=== PATIENT | male | born 1940 | race Caucasian/White ===

== ENCOUNTER 2017-03-16 09:30 | Emergency (ER) | payer OTHER, MEDICARE ==
[2017-03-16 09:44] VITALS: RESP 16; O2SAT 97
[2017-03-16 10:16] LABS: % IMMATURE GRANULYOCYTES 0.7 % (0.0-1.1); ABSOLUTE IMMATURE GRANULOCYTES 0.07 10^3/uL (0.00-0.10); ADD DIFF? NO; ADD MORPH? NO; ADD SCAN? NO; ATYPICAL LYMPHOCYTE FLAG 0 (0-99); FRAGMENT RBC FLAG 0 (0-99); HEMATOCRIT 44.9 % (40.0-51.0); HEMOGLOBIN 15.1 g/dL (13.7-17.5); LEFT SHIFT FLG 0 (0-99); LIPEMIA HEMOLYSIS FLAG 80 (0-99); MEAN CELL HEMOGLOBIN 30.6 pg (27.9-34.1); MEAN CELL HEMOGLOBIN CONCENTR. 33.6 g/dL (32.4-36.7); MEAN CELL VOLUME 90.9 fL (81.5-99.8); PLATELET CLUMPS FLAG 10 (0-99); PLATELET COUNT 280 10^3/uL (150-400); RED BLOOD CELL COUNT 4.94 10^6/uL (4.40-6.38); RED CELL DISTRIBUTION WIDTH 12.5 % (11.5-15.2)
[2017-03-16 10:27] LABS: ANION GAP 15 mEq/L (8-16); CALCIUM 9.9 mg/dL (8.5-10.4); CARBON DIOXIDE 22 mEq/l (22-31); CHLORIDE 102 mEq/L (97-110); CREATININE 0.9 mg/dL (0.7-1.3); GLOMERULAR FILTRATION RATE > 60; GLUCOSE 220 mg/dL (70-100); POTASSIUM 4.5 mEq/L (3.5-5.2); SODIUM 139 mEq/L (134-144)
--- NOTE | 2017-03-16 10:33 | EDPHY ---
H & P Time Seen by Provider: 03/16/17 09:46 HPI/ROS: CHIEF COMPLAINT: 2 falls in the last 2 days HISTORY OF PRESENT ILLNESS: 76-year-old man is visiting from [place]. He had his 1st fall about a month ago when he was wearing a leaf blower on his back at home in [place] and fell on the slope outside of his house injuring his left elbow. He tells me that he fell Friday 2 days ago when he stepped on the edge of a planter and today he fell trying to get up of a rocking chair and ended up on the bed. His 2 daughters also feel like maybe he was a little "spacier "than normal when he arrived here on the but after encouraging him to drink a lot of water for 2 days it has been really mentally at his baseline since at least the day before . Currently the patient denies double vision or headache, denies neck or back pain , denies dizziness syncope or vertigo. REVIEW OF SYSTEMS: Eye: no change in vision ENT: no sore throat, chronically wears hearing aids Cardiac: no chest pain or syncope Pulmonary: no cough or SOB Abdomen: no vomiting, diarrhea, abdominal pain Musculoskeletal: no back pain Skin: no rash Neuro: no headache Constitutional: no fever : Some chronic urinary hesitancy which is unchanged A comprehensive 10 point review of systems is otherwise negative aside from elements mentioned in the history of present illness. PAST MEDICAL HISTORY: Includes diabetes and hypertension, reflux. Open-heart surgery in 1949, patient states he does not know the details and never really wanted to know them. Social history: Here with his daughters, visiting from [place] General Appearance: Alert and conversant, cooperative. Eyes: No scleral icterus. Pupils equal round reactive extraocular motion intact. ENT, Mouth: Normal mucous membranes. Respiratory: Normal respiratory effort, breath sounds equal, lungs are clear to auscultation. Cardiovascular: Regular rate and rhythm. 1/6 systolic murmur. Gastrointestinal: Abdomen is soft and non tender. Neurological: Alert and oriented x3. Normally conversant. Face symmetric, normal movement and sensation in all extremities. Ambulatory, not ataxic, normal [id number] bilaterally, negative for pronator drift, negative Romberg. Skin: 5 mm abrasion over the right eyelid and bruising around the right eye. Musculoskeletal: No peripheral edema and no joint swelling. No cervical thoracic or lumbar spinal tenderness. Psychiatric: Not agitated. Emergency Department course/MDM: Plan urinalysis, noncontrast head CT, labs to check glucose. Most likely would be mechanical falls. Considered including but not limited to dysrhythmia, syncope, seizure, intracranial bleed, metabolic abnormality 1045: CT head negative for acute injury per Tammy. Cervical spine cleared clinically by myself. 1122: Results discussed with family, discharge after urinalysis with primary care follow-up in [place]. They are all in agreement. Negative for UTI. Clinical picture not suggestive of syncope. Smoking Status: Never smoked Constitutional: Initial Vital Signs Temperature (C) 37.0 C 03/16/17 09:37 Heart Rate 78 03/16/17 09:37 Respiratory Rate 16 03/16/17 09:37 Blood Pressure 186/94 H 03/16/17 09:37 O2 Sat (%) 97 03/16/17 09:37 O2 Delivery Mode Room Air Allergies/Adverse Reactions: povidone-iodine [From Betadine] Allergy (Verified 03/16/17 09:36) soap [From Betadine] Allergy (Verified 03/16/17 09:36) Home Medications: Medication Instructions Recorded Janumet 50-1,000 mg Tablet 03/16/17 LORAZEPAM 03/16/17 Metoprolol ER-Hctz 100-12.5 mg 03/16/17 Pravastatin Sodium 03/16/17 Sertraline HCl 03/16/17 Tamsulosin HCl 03/16/17 Medical Decision Making - Diagnostics EKG Interpretation: 12-lead EKG interpreted by me; official reading is in trace master. My interpretation is sinus rhythm with first-degree AV block and LVH. Imaging Results: Imaging Impressions Head CT 03/16/17 10:04 Impression: 1. No acute intracranial findings. 2. Diffuse cerebral atrophy with periventricular and subcortical low attenuation consistent with chronic microvascular ischemic gliosis. Findings discussed with Teodoro Obrien MD on March 16, 2017 at 1040 hours. Differential Diagnosis: Differential diagnosis considered for head injury including but not limited to concussion, skull fracture, intraparenchymal contusion, subarachnoid, subdural and epidural hematoma. - Data Points Laboratory Results: Laboratory Results 03/16/17 10:10 03/16/17 10:10 03/16/17 03/16/17 03/16/17 11:35 10:10 10:10 WBC 9.77 10^3/uL H 10^3/uL (3.80-9.50) RBC 4.94 10^6/uL 10^6/uL (4.40-6.38) Hgb 15.1 g/dL g/dL (13.7-17.5) Hct 44.9 % % (40.0-51.0) MCV 90.9 fL fL (81.5-99.8) MCH 30.6 pg pg (27.9-34.1) MCHC 33.6 g/dL g/dL (32.4-36.7) RDW 12.5 % % (11.5-15.2) Plt Count 280 10^3/uL 10^3/uL (150-400) MPV 11.0 fL fL (8.7-11.7) Neut % (Auto) 79.8 % H % (39.3-74.2) Lymph % (Auto) 9.3 % L % (15.0-45.0) [place] % (Auto) 7.3 % % (4.5-13.0) Eos % (Auto) 2.5 % % (0.6-7.6) Baso % (Auto) 0.4 % % (0.3-1.7) Nucleat RBC Rel Count 0.0 % % (0.0-0.2) Absolute Neuts (auto) 7.80 10^3/uL H 10^3/uL (1.70-6.50) Absolute Lymphs (auto) 0.91 10^3/uL L 10^3/uL (1.00-3.00) Absolute Monos (auto) 0.71 10^3/uL 10^3/uL (0.30-0.80) Absolute Eos (auto) 0.24 10^3/uL 10^3/uL (0.03-0.40) Absolute Basos (auto) 0.04 10^3/uL 10^3/uL (0.02-0.10) Absolute Nucleated RBC 0.00 10^3/uL 10^3/uL (0-0.01) Immature Gran % 0.7 % % (0.0-1.1) Immature Gran # 0.07 10^3/uL 10^3/uL (0.00-0.10) Sodium 139 mEq/L mEq/L (134-144) Potassium 4.5 mEq/L mEq/L (3.5-5.2) Chloride 102 mEq/L mEq/L (97-110) Carbon Dioxide 22 mEq/l mEq/l (22-31) Anion Gap 15 mEq/L mEq/L (8-16) BUN 22 mg/dL mg/dL (7-23) Creatinine 0.9 mg/dL mg/dL (0.7-1.3) Estimated GFR > 60 Glucose 220 mg/dL H mg/dL (70-100) Calcium 9.9 mg/dL mg/dL (8.5-10.4) Urine Color YELLOW Urine Appearance CLEAR Urine pH 6.0 (5.0-7.5) Ur Specific [place] 1.017 (1.002-1.030) Urine Protein 2+ H (NEGATIVE) Urine Ketones NEGATIVE (NEGATIVE) Urine Blood NEGATIVE (NEGATIVE) Urine Nitrate NEGATIVE (NEGATIVE) Urine Bilirubin NEGATIVE (NEGATIVE) Urine Urobilinogen 2.0 EU H EU (0.2-1.0) Ur Leukocyte Esterase NEGATIVE (NEGATIVE) Urine RBC 1-3 /hpf /hpf (0-3) Urine WBC 1-3 /hpf /hpf (0-3) Ur Epithelial Cells NONE SEEN /lpf /lpf (NONE-1+) Urine Mucus TRACE /lpf /lpf (NONE-1+) Urine Glucose 1+ H (NEGATIVE) Departure - Departure Disposition: Home, Routine, Self-Care Clinical Impression: Forehead abrasion Qualifiers: Encounter type: initial encounter Qualified Code(s): S00.81XA - Abrasion of other part of head, initial encounter Facial contusion Qualifiers: Encounter type: initial encounter Qualified Code(s): S00.83XA - Contusion of other part of head, initial encounter Condition: Good Instructions: Head Injury (ED), Abrasion (ED) Referrals: KEYANNA BUI [Other] - As per Instructions
--- NOTE | 2017-03-16 11:12 | CPEKG ---
Heart Rate: 76 RR Interval: 789 P-R Interval: 224 QRSD Interval: 98 QT Interval: 408 QTC Interval: 459 P Lowber: 54 QRS Lowber: -62 T Wave Lowber: 98 EKG Severity - ABNORMAL ECG - EKG Impression: SINUS RHYTHM EKG Impression: FIRST DEGREE AV BLOCK EKG Impression: LEFT ANTERIOR FASCICULAR BLOCK EKG Impression: LVH WITH SECONDARY REPOLARIZATION ABNORMALITY EKG Impression: ANTERIOR Q WAVES, POSSIBLY DUE TO LVH Electronically Signed By: Teodoro Obrien 16-Mar-2017 11:34:24
[2017-03-16 11:58] LABS: COLOR YELLOW; LEUKOCYTE ESTERASE,URINE NEGATIVE (NEGATIVE); NITRITE,URINE NEGATIVE (NEGATIVE)
[2017-03-16 12:00] LABS: MUCUS TRACE /lpf (NONE-1+)
[2017-03-16 12:52] VITALS: BP 171/97; PULSE 69; TEMP 98.4
== END 2017-03-16 12:48 | disposition home or self-care (01) ==
DX: S00.81XA Abrasion of other part of head, initial encounter (principal); S00.83XA Contusion of other part of head, initial encounter; E11.9 Type 2 diabetes mellitus without complications; I10 Essential (primary) hypertension; W07.XXXA Fall from chair, initial encounter